=== PATIENT | male | born 1960 | race Caucasian/White ===

== ENCOUNTER 2017-07-28 09:39 | Emergency (ER) | payer OTHER ==
[~2017-07-28] VITALS: Ht 172.7 cm; Wt 72.6 kg
[2017-07-28] MEDS ORDERED: PROP80ER PO (09:48)
[2017-07-28] MEDS ORDERED: Ciloxan5 ML BOTHEYES (10:01)
== END 2017-07-28 10:09 | disposition home or self-care (01) ==
LOC: ER 09:39
DX: H10.9 Unspecified conjunctivitis (principal); I10 Essential (primary) hypertension; Z79.899 Other long term (current) drug therapy
CPT/HCPCS: 99282

== ENCOUNTER 2017-08-08 06:06 | Day surgery (SDC) | payer OTHER ==
[~2017-08-08] VITALS: Ht 172.7 cm; Wt 74.0 kg
[~2017-08-08 06:06] MED LIST: Ciloxan5 ML BOTHEYES; PROP80ER PO
[2017-08-08] MEDS ORDERED: TAMS.4ER PO (06:43)
== END 2017-08-08 09:35 | disposition home or self-care (01) ==
LOC: ORSCSDS 06:06
PROVIDERS: Urology
PROC: 0V507ZZ Destruction of Prostate, Via Natural or Artificial Opening (ICD-10-PCS; principal; 2017-08-08 07:30)
DX: N40.1 Benign prostatic hyperplasia with lower urinary tract symptoms (principal); Z79.899 Other long term (current) drug therapy
CPT/HCPCS: J0744; J1100; J2250; J2370; J2405; J3010; J7120

== ENCOUNTER 2022-02-13 09:02 | Day surgery (SDC) | payer OTHER ==
[~2022-02-13] VITALS: Ht 172.7 cm; Wt 76.9 kg
[~2022-02-13 09:02] MED LIST changes: +ATOR10 PO; +Amitriptyline H10 MG PO; +SILD25T PO; +TAMS.4ER PO
[2022-02-13] MEDS ORDERED: LOSA25 (09:40)
--- NOTE | 2022-02-13 09:57 | NUR ---
02/13/22 0957 ESVIN CRUZ TWO ATTEMPTS AT IV. FIRST ATTEMPT BY MA IN RIGHT HAND INFILTRATED. SECOND ATTEMPT BY MA IN RIGHT FOREARM SUCCESSFUL.
== END 2022-02-13 11:00 | disposition home or self-care (01) ==
LOC: ORSCSDS 09:02
PROVIDERS: Surgery
PROC: 0DJD8ZZ Inspection of Lower Intestinal Tract, Via Natural or Artificial Opening Endoscopic (ICD-10-PCS; principal; 2022-02-13 10:30)
DX: Z12.11 Encounter for screening for malignant neoplasm of colon (principal); F41.8 Other specified anxiety disorders; Z79.899 Other long term (current) drug therapy
CPT/HCPCS: J2704; J7120